=== PATIENT | female | born 1960 | race Caucasian/White ===

== ENCOUNTER → 2020-08-17 18:22 | Outpatient (CLI) | payer OTHER, SELFPAY ==
[2020-08-17 19:07] LABS: Basophils # 0.1 K/mm3 (0-0.2); Basophils % 0.8 % (0.1-2.0); Eosinophils # 0.3 K/mm3 (0.0-0.4); Eosinophils % 2.5 % (0.1-12.0); Hematocrit 40.6 % (37.0-47.0); Hemoglobin 12.3 g/dL (12.2-16.2); Lymphocytes # 1.7 K/mm3 (0.7-4.5); Lymphocytes % 17.3 % (10-50); Mean Corpuscular HGB Conc 30.3 g/dL (31.8-35.4); Mean Corpuscular Hemoglobin 29.6 pg (27.0-31.2); Mean Corpuscular Volume 97.6 fl (81-99); Mean Platelet Volume 8.5 fl (7.4-10.4); Monocytes # 0.5 K/mm3 (0.1-1.0); Monocytes % 5.5 % (1.7-9.3); Neutrophils # 7.3 K/mm3 (1.8-7.8); Neutrophils % 73.9 % (37.0-80.0); Platelet Count 421 K/mm3 (142-424); Red Blood Count 4.16 M/mm3 (4.20-5.40); White Blood Count 9.9 K/mm3 (4.8-10.8)
[2020-08-17 19:22] LABS: Alanine Aminotransferase 15 U/L (12-78); Albumin Level 4.6 g/dl (3.5-5.0); Albumin/Globulin Ratio 1.5 (1.1-1.8); Alkaline Phosphatase 105 U/L (38-126); Anion Gap 12.2 mEq/L (5-15); Aspartate Amino Transferase 28 U/L (14-36); Bilirubin,Total 0.4 mg/dl (0.2-1.3); Blood Urea Nitrogen 16 mg/dl (7-17); Calcium 10.3 mg/dl (8.4-10.2); Carbon Dioxide 28 mmol/L (22.0-30.0); Chloride 101 mmol/L (98-107); Chol/HDL Ratio 3.1 (1-3.5); Cholesterol 191 mg/dl (140-200); Estimated Glomerular Filt Rate 73 ml/min (>60); GFR (African American) 88 ML/MIN (>60); Globulin 3.1 g/dL (1.3-3.2); Glucose 94 mg/dl (74-100); HDL Cholesterol 61 mg/dl (40-60); Potassium 4.2 mmoL/L (3.5-5.1); Sodium 137 mmol/L (136-145); Total Protein,Serum 7.7 g/dl (6.3-8.2); Triglycerides 122 mg/dl (30-150); VLDL Cholesterol 24 mg/dL (0-40)
[2020-08-17 19:33] LABS: Direct LDL Cholesterol 112.22 mg/dL (100-129)
[2020-08-17 19:39] LABS: Free T4 (Free Thyroxine) 1.32 ng/dl (0.78-2.19)
[2020-08-17 19:53] LABS: Thyroid Stimulating Hormone 4.52 uIU/mL (0.465-4.68)
[2020-08-19 11:54] LABS: Hep A Ab, IgM Negative (Negative); Hep A Ab, Total Negative (Negative); Hep B Core Ab, Total Negative (Negative)
[2020-08-19 12:02] LABS: Hep B Surface Ab, Qual Non Reactive (.); Hepatitis C Antibody 0.6 s/co ratio (0.0-0.9)
== END ==
PROVIDERS: Visit Provider Emergency Medicine
DX: R53.83 Other fatigue (principal); E55.9 Vitamin D deficiency, unspecified; F11.11 Opioid abuse, in remission
CPT/HCPCS: 80053; 80061; 82306; 84439; 84443; 85025; 86704; 86706; 86708; 87380

== ENCOUNTER 2021-11-16 21:29 | Emergency (ER) | payer OTHER, SELFPAY ==
[2021-11-16 21:31] VITALS: BP 149/94; PULSE 99; RESP 20; TEMP 37.1; O2SAT 100; BMI 22.0
--- NOTE | 2021-11-16 21:56 | ECG_ITS ---
APPROVED REPORT Exam: Resting ECG HR:91 bpm ECG Measurements Heart Rate 91 AXES OH 134 P 25 QRSd 89 QRS 66 QT 324 T 76 QTc 373 Conclusion SINUS RHYTHM NORMAL ECG UNCONFIRMED REPORT Electronically signed by : Prince Bucio MD 11/17/2021 17:41:27
--- NOTE | 2021-11-16 21:58 | XR_ITS ---
PROCEDURE INFORMATION: Exam: XR Chest Exam date and time: 11/16/2021 10:02 PM Age: 60 years old Clinical indication: Cough TECHNIQUE: Imaging protocol: XR of the chest. Views: 2 views. COMPARISON: No relevant prior studies available. FINDINGS: Lungs: 9.5 x 8.9 cm mass overlying the left upper medial lung zone compressing and displacing the trachea to the right. Pleural spaces: No pneumothorax. Heart/Mediastinum: See above. No cardiomegaly. Bones/joints: Unremarkable. Other findings: IMPRESSION: 9.5 x 8.9 cm mass overlying the left upper medial lung zone for which further evaluation with chest CT is recommended.
[2021-11-16 22:10] VITALS: BMI 25.7
--- NOTE | 2021-11-16 22:15 | PC.NURSE ---
call to [facility], requesting copy of last visit , they will fax them
[2021-11-16 22:21] LABS: Strep Scrn Group A (Rapid) Negative (Negative)
[2021-11-16 22:25] LABS: Alanine Aminotransferase 20 U/L (12-78); Alkaline Phosphatase 92 U/L (38-126); Anion Gap 10.7 mEq/L (5-15); Aspartate Amino Transferase 24 U/L (14-36); Bilirubin,Total 0.3 mg/dl (0.2-1.3); Blood Urea Nitrogen 19 mg/dl (7-17); Calcium 8.8 mg/dl (8.4-10.2); Carbon Dioxide 22 mmol/L (22.0-30.0); Chloride 108 mmol/L (98-107); Creatinine Clearance Estimated 63 mL/min (50-200); Estimated Glomerular Filt Rate 73 ml/min (>60); GFR (African American) 88 ML/MIN (>60); Glucose 86 mg/dl (74-100); Lactic Acid 1.3 mmol/L (0.7-2.1); Potassium 3.7 mmoL/L (3.5-5.1); Sodium 137 mmol/L (136-145)
[2021-11-16 22:29] LABS: Acetaminophen < 10 ug/ml (10-30); Salicylate < 1.0 mg/dL (2.0-20.0)
[2021-11-16 22:30] LABS: C-Reactive Protein 38.6 mg/L (0-4)
--- NOTE | 2021-11-16 22:30 | [facility].EDSOB ---
ED Disposition Clinical Impression: Mass of left lung Disposition: Home, Self-Care Condition on Discharge: Fair Instructions: DI for Shortness of Breath Additional Instructions: will have pt see pcp and pul med Referrals: Sal Garcia MD [Primary Care Provider] - Nelson Sullivan MD [Physician] - - Critical Care Critical Care Time: No Attestation: On 11/16/21, the high probability of a clinically significant, sudden or life threatening deterioration of the following system(s) required my full and direct attention, intervention and personal management. The time I documented below is in addition to time spent performing reported procedures but includes the following listed in this critical care notation. Medical Decision Making - Medical Records Medical records reviewed: Yes: I reviewed the patient's medical records. - Bandar Inquiry Pt receiving controlled substance: No Vital Signs: 11/16/21 21:31 Temperature 98.8 F Temperature Source Oral Pulse Rate [Left Brachial] 99 H Respiratory Rate 20 Blood Pressure [Right Arm] 149/94 H Blood Pressure Mean [Right Arm] 112 02 Sat by Pulse Oximetry 100 Oxygen Delivery Method Room Air - Lab Data Lab results reviewed: Yes: I reviewed the patient's lab results. Lab Results 11/16/21 21:54: ESR > 140 H 11/16/21 21:54: Sodium 137, Potassium 3.7, Chloride 108 H, Carbon Dioxide 22, Anion Gap 10.7, BUN 19 H, Creatinine 0.80, Estimated Creat Clear 63, Estimated GFR 73, Est GFR ( Amer) 88, Glucose 86, Calcium 8.8, Total Bilirubin 0.3, AST 24, ALT 20, Alkaline Phosphatase 92, C-Reactive Protein 38.6 H, Total Protein 8.0, Albumin 4.0, Globulin 4.0 H, Albumin/Globulin Ratio 1.0 L, Salicylates < 1.0 L, Acetaminophen < 10 L 11/16/21 21:54: Lactate 1.3 11/16/21 22:04: Group A Strep Rapid Negative 11/16/21 22:05: SARS-CoV-2 (PCR) Not detected, Influenza A Untype (PCR) Not detected, Influenza Type B (PCR) Not detected 11/16/21 23:30: Urine Color Yellow, Urine Appearance Clear, Urine pH 6.0, Ur Specific Davy <= 1.005, Urine Protein Negative, Urine Glucose (UA) Negative, Urine Ketones Negative, Urine Blood Trace-l, Urine Nitrate Negative, Urine Bilirubin Negative, Urine Urobilinogen 0.2, Ur Leukocyte Esterase Negative, Urine RBC Occasional, Urine WBC None, Ur Squamous Epith Cells None, Urine Bacteria Trace 11/16/21 23:30: Urine Opiates Screen Positive H, Urine Methadone Screen Negative, Ur Barbituates Screen Negative, Ur Phencyclidine Scrn Negative, Ur Amphetamines Screen Negative, U Benzodiazepines Scrn Negative, Urine Cocaine Screen Negative, U Marijuana (THC) Screen Negative Result diagrams: 11/16/21 21:54 Orders (Tests/Meds): ED MEDICATIONS Generic Name Dose Route Start Last Admin Trade Name Freq PRN Reason Stop Dose Admin Sodium Chloride 1,000 mls @ 999 mls/hr 11/16/21 22:15 11/16/21 22:13 Sod Chlor 0.9% 1000ml Bag IV 11/16/21 23:15 999 mls/hr .[id number] ELEANOR Administration ORDERS Category Date Time Status CT cervical spine wo con Stat Cat Scan 11/17/21 00:[address] head/brain wo con Stat Cat Scan 11/17/21 00:[address] thoracic spine wo con Stat Cat Scan 11/17/21 00:00 Taken Complete Blood Count Auto Diff Stat Lab 11/16/21 21:54 Results Erythrocyte Sedimentation Rate Stat Lab 11/16/21 21:54 Results Strep Screen Confirmation Stat Micro 11/16/21 22:04 Received - Radiology Data #1 Image(s): Chest Image Reviewed: Yes I have reviewed radiologist's interpretation Preliminary Findings: Abnormal (lt lung mass) - CT Data CT Scan: Head, C-Spine, T-Spine Time Received: 00:[address] Reviewed: Yes: I have viewed the radiologist's interpretation Preliminary Findings: Abnormal (xray report pending ) - ECG Data Tracing #1 Normal Sinus Rhythm: Yes Ischemic changes: non-specific ST-T wave changes - KALYN Score for Non-Stemi Age of Patient: 60-69 years old Heart Rate: 90-109 bpm Systolic Blood Pressure: 140-159 mmHg Serum Cr
[2021-11-16 22:52] LABS: Erythrocyte Sedimentation Rate > 140 mm/hr (0-30)
[2021-11-16 23:33] LABS: Coronavirus 19, PCR Not Detected (NotDetected); Influenza A, PCR Not Detected (NotDetected); Influenza B, PCR Not Detected (NotDetected)
[2021-11-16 23:35] LABS: Microscopic, Urine URINE MICROSCOPIC (MICROSCOPIC)
--- NOTE | 2021-11-17 | CT_ITS ---
PROCEDURE INFORMATION: Exam: CT Cervical Spine Without Contrast Exam date and time: 11/17/2021 12:01 AM Age: 60 years old Clinical indication: Neck pain TECHNIQUE: Imaging protocol: Computed tomography images of the cervical spine without contrast. Radiation optimization: All CT scans at this facility use at least one of these dose optimization techniques: automated exposure control; mA and/or kV adjustment per patient size (includes targeted exams where dose is matched to clinical indication); or iterative reconstruction. COMPARISON: CR XR CHEST 2V 11/16/2021 10:02 PM FINDINGS: Vertebrae: There are mild degenerative changes present. Normal alignment. No acute fractures. There is a chronic fracture through the base of the dens which has healed without union. Soft tissues: Unremarkable. Lungs: There is a 3.5 x 3.9 cm rounded mass in the left lung apex with surrounding edema. IMPRESSION: No acute spinal abnormality. Chronic fracture at the base of the dens which has healed without union. Mass in the apex of the left lung. Correlate with any history of known tumor.
--- NOTE | 2021-11-17 | CT_ITS ---
PROCEDURE INFORMATION: Exam: CT Head Without Contrast Exam date and time: 11/17/2021 12:01 AM Age: 60 years old Clinical indication: Walking, difficulty; Additional info: Weakness/gait abn TECHNIQUE: Imaging protocol: Computed tomography of the head without contrast. Radiation optimization: All CT scans at this facility use at least one of these dose optimization techniques: automated exposure control; mA and/or kV adjustment per patient size (includes targeted exams where dose is matched to clinical indication); or iterative reconstruction. COMPARISON: No relevant prior studies available. FINDINGS: Brain: Age appropriate atrophy and small vessel ischemic change. No evidence of intracranial hemorrhage, mass effect, midline shift or extra-axial fluid collections. Midline structures are normal. [place]ambula-white matter differentiation is normal. Cerebral ventricles: No ventriculomegaly. Paranasal sinuses: Visualized sinuses are unremarkable. No fluid levels. Mastoid air cells: There has been a left canal wall down mastoidectomy. There is fluid in the right mastoid air cells and tympanic cavity. There is a tympanostomy tube in the right tympanic membrane. There is nodular soft tissue along both tympanic membranes which may be cerumen versus cholesteatomas. Bones/joints: Unremarkable. No acute fracture. Soft tissues: Unremarkable. IMPRESSION: No acute intracranial abnormality. Left mastoidectomy, right mastoid effusion and otitis media with a tympanostomy tube and possible bilateral cholesteatomas versus cerumen. Correlate clinically
--- NOTE | 2021-11-17 | CT_ITS ---
PROCEDURE INFORMATION: Exam: CT Thoracic Spine Without Contrast Exam date and time: 11/17/2021 12:04 AM Age: 60 years old Clinical indication: Pain in thoracic spine TECHNIQUE: Imaging protocol: Computed tomography images of the thoracic spine without contrast. Radiation optimization: All CT scans at this facility use at least one of these dose optimization techniques: automated exposure control; mA and/or kV adjustment per patient size (includes targeted exams where dose is matched to clinical indication); or iterative reconstruction. COMPARISON: CT CERVICAL SPINE WO CON 11/17/2021 12:01 AM FINDINGS: Vertebrae: Pathologic compression fracture T6 appears acute. No retropulsion. Pathologic compression fracture T4 appears acute, also without retropulsion. Discs/Spinal canal/Neural foramina: No significant disc protrusion. No severe spinal canal stenosis. No significant neural foraminal narrowing. Soft tissues: Unremarkable. Lungs: Large left upper lobe lung mass 9 x 7.5 cm concern for primary lung cancer. Mediastinum: Direct invasion of the mediastinum is suspected. IMPRESSION: 1. Large left upper lobe lung mass 9 x 7.5 cm concern for primary lung cancer. 2. Direct invasion of the mediastinum is suspected. 3. Pathologic compression fracture T6 appears acute. No retropulsion. 4. Pathologic compression fracture T4 appears acute, also without retropulsion.
--- NOTE | 2021-11-17 00:03 | PC.NURSE ---
call to lab requesting urine results, per Sonya approx. 5 more minutes
--- NOTE | 2021-11-17 00:04 | PC.NURSE ---
patient to radiology
[2021-11-17 00:09] LABS: Appearance,Urine CLEAR (Clear); Bilirubin,Urine Negative (Negative); Blood, Urine TRACE-L (Negative); Color,Urine YELLOW (Yellow); Glucose,Urine (UA) Negative (Negative); Ketones,Urine Negative (Negative); Leukocyte Esterase,Urine Negative (Negative); Nitrate,Urine Negative (Negative); Protein,Urine Negative (Negative); Specific Gravity, Urine <= 1.005 (1.005-1.030); Urobilinogen,Urine 0.2 EU/dl (0.2)
--- NOTE | 2021-11-17 00:12 | PC.NURSE ---
patient back in room from radiology
[2021-11-17 00:14] LABS: Bacteria,Urine Trace /lpf; RBC,Urine Occasional #/hpf (0-3)
[2021-11-17 00:20] LABS: Benzodiazepines Screen,Urine Negative ng/ml (<200)
[2021-11-17 00:21] LABS: Amphetamine/Metha Screen,Urine Negative ng/ml (<1000); Barbiturates Screen,Urine Negative ng/ml (<200)
[2021-11-17 00:22] LABS: Cannabinoid Screen,Urine Negative ng/ml (<50); Cocaine Screen,Urine Negative ng/ml (<300)
[2021-11-17 00:23] LABS: Methadone Screen,Urine Negative ng/ml (<300)
[2021-11-17 00:24] LABS: Opiate Screen,Urine Positive ng/ml (<300); Phencyclidine Screen,Urine Negative ng/ml (<25)
--- NOTE | 2021-11-17 00:28 | PC.NURSE ---
Pt's daughter Belem Mahoney called for an update on mother. Per pt it is ok to update her with anything except about me partying with meth recently .
--- NOTE | 2021-11-17 00:53 | PC.NURSE ---
Dr. Garcia s/w JOHNAD
[2021-11-17 00:54] VITALS: BP 144/98; PULSE 80; RESP 20; TEMP 36.7; O2SAT 97
--- NOTE | 2021-11-17 00:58 | PC.NURSE ---
Dr. Garcia discussing radiology reports with pt
[2021-11-17 06:00] LABS: Hematocrit 29.3 % (37.0-47.0); Hemoglobin 9.1 g/dL (12.2-16.2); Mean Corpuscular HGB Conc 31.1 g/dL (31.8-35.4); Mean Corpuscular Hemoglobin 26.8 pg (27.0-31.2); Mean Corpuscular Volume 86.4 fl (81-99); Mean Platelet Volume 9.8 fl (7.4-10.4); Platelet Count 565 K/mm3 (142-424); Red Blood Count 3.39 M/mm3 (4.20-5.40)
[2021-11-17 06:01] LABS: White Blood Count 11.2 K/mm3 (4.8-10.8)
== END 2021-11-17 01:19 | disposition home or self-care (01) ==
PROVIDERS: Emergency Provider Emergency Medicine; PCP Emergency Medicine
DX: R91.8 Other nonspecific abnormal finding of lung field (principal); M48.54XA Collapsed vertebra, not elsewhere classified, thoracic region, initial encounter for fracture; J44.9 Chronic obstructive pulmonary disease, unspecified; F12.10 Cannabis abuse, uncomplicated; F33.1 Major depressive disorder, recurrent, moderate; I10 Essential (primary) hypertension; F17.210 Nicotine dependence, cigarettes, uncomplicated; Z79.899 Other long term (current) drug therapy
CPT/HCPCS: 70450; 71046; 72125; 72128; 80053; 80305; 80329; 81001; 83605; 85025; 85651; 86140; 87430; 93005; 96360; 96365; 99284; C9803; U0003; U0005

== ENCOUNTER → 2021-11-23 10:14 | Outpatient (CLI) | payer OTHER, SELFPAY ==
[2021-11-23 15:22] LABS: Amphetamine/Metha Screen,Urine Negative ng/ml (<1000)
[2021-11-23 15:23] LABS: Barbiturates Screen,Urine Negative ng/ml (<200); Benzodiazepines Screen,Urine Negative ng/ml (<200)
[2021-11-23 15:24] LABS: Cannabinoid Screen,Urine Negative ng/ml (<50)
[2021-11-23 15:25] LABS: Cocaine Screen,Urine Negative ng/ml (<300); Methadone Screen,Urine Negative ng/ml (<300)
[2021-11-23 15:26] LABS: Opiate Screen,Urine Positive ng/ml (<300)
[2021-11-23 15:27] LABS: Phencyclidine Screen,Urine Negative ng/ml (<25)
== END ==
PROVIDERS: PCP Emergency Medicine; Visit Provider Emergency Medicine
DX: G62.9 Polyneuropathy, unspecified (principal); Z79.899 Other long term (current) drug therapy
CPT/HCPCS: 80305

== ENCOUNTER → 2021-11-26 12:28 | Outpatient (CLI) | payer OTHER, SELFPAY | PROVIDERS: Visit Provider Internal Medicine Pulmonary Disease | DX: Z01.812 Encounter for preprocedural laboratory examination (principal); Z11.52 Encounter for screening for COVID-19 | CPT/HCPCS: C9803; U0003; U0005 ==

== ENCOUNTER → 2021-12-03 09:05 | Outpatient (CLI) | payer OTHER, SELFPAY | PROVIDERS: Visit Provider Internal Medicine Pulmonary Disease | DX: Z01.812 Encounter for preprocedural laboratory examination (principal); Z11.52 Encounter for screening for COVID-19; R91.8 Other nonspecific abnormal finding of lung field | CPT/HCPCS: C9803; U0003; U0005 ==